=== PATIENT | female | born 1985 | race Two or more races ===

== ENCOUNTER 2020-12-25 23:31 | Emergency (ER) | payer BC | END 2020-12-26 00:20 | disposition left against medical advice (07) | LOC: CSHERS 23:31 | DX: Z53.21 Procedure and treatment not carried out due to patient leaving prior to being seen by health care provider (principal) ==

== ENCOUNTER 2021-06-19 08:25 | Emergency (ER) | payer BC, SELFPAY | END 2021-06-19 09:30 | disposition home or self-care (01) | LOC: CSHERS 08:25 | DX: N83.209 Unspecified ovarian cyst, unspecified side (principal); M54.50 Low back pain, unspecified | CPT/HCPCS: 99283 ==

== ENCOUNTER 2022-04-24 08:21 | Emergency (ER) | payer SELFPAY ==
[2022-04-24] MEDS ORDERED: Dexamethasone 4 MG TAB ONE (09:14)
== END 2022-04-24 09:25 | disposition home or self-care (01) ==
LOC: CSHERS 08:21
DX: J03.90 Acute tonsillitis, unspecified (principal); F17.290 Nicotine dependence, other tobacco product, uncomplicated
CPT/HCPCS: 87081; 87430; 99283; J8540

== ENCOUNTER 2022-08-07 04:33 | Emergency (ER) | payer SELFPAY ==
[2022-08-07] MEDS ORDERED: Ketorolac Tromethamine 30 MG/ML VIAL ONE (04:54)
== END 2022-08-07 05:17 | disposition home or self-care (01) ==
LOC: CSHERS 04:33
DX: K08.89 Other specified disorders of teeth and supporting structures (principal); F17.290 Nicotine dependence, other tobacco product, uncomplicated
CPT/HCPCS: 96372; 99282; J1885

== ENCOUNTER 2022-08-20 09:20 | Emergency (ER) | payer SELFPAY | END 2022-08-20 10:42 | disposition home or self-care (01) | LOC: CSHERS 09:20 | DX: L71.0 Perioral dermatitis (principal); F17.290 Nicotine dependence, other tobacco product, uncomplicated | CPT/HCPCS: 99282 ==

== ENCOUNTER 2023-01-29 01:19 | Emergency (ER) | payer SELFPAY ==
[2023-01-29] MEDS ORDERED: Fluorescein Opthalmic Strip ONE (02:49)
== END 2023-01-29 03:17 | disposition home or self-care (01) ==
LOC: CSHERS 01:19
DX: B00.9 Herpesviral infection, unspecified (principal); H01.9 Unspecified inflammation of eyelid; F17.290 Nicotine dependence, other tobacco product, uncomplicated
CPT/HCPCS: 99283

== ENCOUNTER 2023-04-06 19:12 | Emergency (ER) | payer SELFPAY ==
[2023-04-06] MEDS ORDERED: diphenhydrAMINE 25 MG CAP ONE (21:44)
[2023-04-06] MEDS ORDERED: predniSONE 20 MG TAB ONE (21:44)
== END 2023-04-06 22:05 | disposition home or self-care (01) ==
LOC: CSHERS 19:12
DX: B86 Scabies (principal); F17.290 Nicotine dependence, other tobacco product, uncomplicated
CPT/HCPCS: 99282; J7512

== ENCOUNTER 2023-04-19 12:30 | Emergency (ER) | payer SELFPAY ==
[2023-04-19] MEDS ORDERED: diphenhydrAMINE 25 MG CAP ONE (13:22)
== END 2023-04-19 13:30 | disposition home or self-care (01) ==
LOC: CSHERS 12:30
DX: L20.9 Atopic dermatitis, unspecified (principal); L29.9 Pruritus, unspecified; F17.290 Nicotine dependence, other tobacco product, uncomplicated
CPT/HCPCS: 99282

== ENCOUNTER 2024-01-23 13:11 | Emergency (ER) | payer OTHER ==
[2024-01-23] MEDS ORDERED: Ibuprofen 200 MG TAB ONE (13:28)
[2024-01-23 13:33] LABS: #Basophils 0.04 10x3/uL (0.0-0.2); #Eosinphils 0.32 10x3/uL (0.0-0.5); #Monocytes 0.88 10x3/uL (0.0-1.1); #Neutrophils 7.72 10x3/uL (1.5-8.4); %Basophils 0.4 % (0.0-2.0); %Eosinophils 3.3 % (0.0-6.0); %Monocytes 9.1 % (0.0-10.0); %Neutrophils 79.8 % (40.0-75.0); Hematocrit 38.7 % (34.9-44.5); Hemoglobin 12.9 g/dL (12.0-15.5); Mean Corpuscular HGB CONC 33.3 g/dL (32.0-36.0); Mean Corpuscular Hemoglobin 30.7 pg (27.0-33.0); Mean Corpuscular Volume 92.1 fL (81.6-98.3); Mean Platelet Volume 9.6 fL (7.4-10.4); Platelet Count 289 10x3/uL (150-450); RBC Distribution Width 13.6 % (11.5-14.5); White Blood Cell (WBC) Count 9.7 10x3/uL (3.5-10.5)
[2024-01-23 13:45] LABS: BHCG - Serum Negative (NEGATIVE); Pregs Control Background? CLEAR/WHITE (CLR/WHITE); Pregs Control Bar Appear? YES (CONTROL BAR)
[2024-01-23 13:52] LABS: ALT (SGPT) 30 U/L (8-55); AST (SGOT) 25 U/L (5-34); Albumin 3.7 g/dL (3.5-5.0); Alkaline Phosphatase 77 U/L (40-110); Anion Gap 12 mmol/L (10-20); BUN (Urea Nitrogen) 12 mg/dL (7.0-18.7); Bilirubin, Total 0.3 mg/dL (0.2-1.2); Calc. Creatinine Clearance 0 mL/min (70-130); Calcium 9.5 mg/dL (7.8-10.44); Carbon Dioxide 23 mmol/L (22-29); Chloride 106 mmol/L (98-107); Estimated GFR 92; Globulin 3.5 g/dL (2.4-3.5); Glucose 89 mg/dL (70-105); Protein, Total 7.2 g/dL (6.0-8.3); Sodium 137 mmol/L (136-145)
[2024-01-23 13:58] LABS: Troponin I Less than 0.010 ng/mL (< 0.028)
[2024-01-23 14:22] LABS: SARS-CoV-2 E Target Positive; SARS-CoV-2 N2 Target Positive; SARS-CoV-2 NAA Rapid Test DETECTED (NotDetected); SARS-CoV-2 RdRP gene Positive
== END 2024-01-23 14:24 | disposition home or self-care (01) ==
LOC: CSHERS 13:11
DX: R07.89 Other chest pain (principal); J20.9 Acute bronchitis, unspecified; F17.290 Nicotine dependence, other tobacco product, uncomplicated
CPT/HCPCS: 36415; 71045; 80053; 84484; 84703; 85025; 93005; U0002

== ENCOUNTER 2024-04-23 01:52 | Emergency (ER) | payer SELFPAY | END 2024-04-23 02:10 | disposition home or self-care (01) | LOC: CSHERS 01:52 | DX: K04.7 Periapical abscess without sinus (principal); F17.290 Nicotine dependence, other tobacco product, uncomplicated | CPT/HCPCS: 99282 ==

== ENCOUNTER 2025-04-30 06:42 | Emergency (ER) | payer OTHER ==
[2025-04-30] MEDS ORDERED: Fluorescein Opthalmic Strip ONE (08:16)
[2025-04-30] MEDS ORDERED: Proparacaine 0.5% Opth 15 ML BOT ONE (08:17)
== END 2025-04-30 08:55 | disposition home or self-care (01) ==
LOC: CSHERS 06:42
DX: J06.9 Acute upper respiratory infection, unspecified (principal); B34.9 Viral infection, unspecified; B02.9 Zoster without complications; F17.290 Nicotine dependence, other tobacco product, uncomplicated
CPT/HCPCS: 87428; 99283